=== PATIENT | male | born 1970 ===

== ENCOUNTER 2020-12-18 06:20 | Day surgery (SDC) | payer OTHER | END 2020-12-18 12:20 | disposition home or self-care (01) | LOC: AMB-ENDOS 06:20 | PROVIDERS: ATTEND Surgery | DX: C18.7 Malignant neoplasm of sigmoid colon (principal) ==

== ENCOUNTER 2021-01-16 09:11 | Outpatient (CLI) | payer OTHER | END 2021-01-16 09:36 | disposition home or self-care (01) | LOC: TOM 09:11 | PROVIDERS: ATTEND Surgery | DX: I10 Essential (primary) hypertension (principal); D12.5 Benign neoplasm of sigmoid colon; K92.1 Melena; C18.7 Malignant neoplasm of sigmoid colon; R59.0 Localized enlarged lymph nodes ==

== ENCOUNTER 2021-02-01 12:00 | Inpatient (IN) | payer OTHER ==
[~2021-02-01] VITALS: Ht 175.3 cm; Wt 90.7 kg
[2021-02-09] MEDS ORDERED: ULTRACET PO (12:23)
[2021-02-09] MEDS ORDERED: PRILOSEC OTC20 MG PO (12:23)
== END 2021-02-09 17:02 | disposition home or self-care (01) | DRG 330 ==
LOC: O/R 02-06 05:45 → SURG 02-06 05:45 → SURH 02-06 11:15 → SURG 02-09 17:02
PROVIDERS: ADMIT Surgery; ATTEND Surgery
PROC: 0DBP4ZZ Excision of Rectum, Percutaneous Endoscopic Approach (ICD-10-PCS; 2021-02-06)
PROC: 07BB4ZZ Excision of Mesenteric Lymphatic, Percutaneous Endoscopic Approach (ICD-10-PCS; 2021-02-06)
PROC: 3E0F7SF Introduction of Other Gas into Respiratory Tract, Via Natural or Artificial Opening (ICD-10-PCS; 2021-02-06)
PROC: 0DTN4ZZ Resection of Sigmoid Colon, Percutaneous Endoscopic Approach (ICD-10-PCS; principal; 2021-02-06 11:15)
DX: C18.7 Malignant neoplasm of sigmoid colon (principal); K92.1 Melena; R59.0 Localized enlarged lymph nodes; D12.5 Benign neoplasm of sigmoid colon